=== PATIENT | male | born 1940 | race Caucasian/White ===

== ENCOUNTER 2017-03-26 11:56 | Observation (INO) ==
[2017-03-26] MEDS ORDERED: ASPIRIN PO STA (12:12)
[2017-03-26 12:28] LABS: MANUAL DIFF NEEDED? NO
--- NOTE | 2017-03-26 12:29 | ED EKG INTERP ---
This chart was entered by Deon Sánchez Scribe, acting as scribe for Bradly Romero MD. EKG Interpretation - EKG Time of EKG reading by physician:: 12:06 EKG Read and Signed by:: Bradly Romero EKG Interpretation (*Must complete 3 of following elements*): Normal Rate: 57 Rhythm: Sinus bradycardia [place]: normal QRS: normal [place] Interval: normal ST Wave: normal This chart was documented by the indicated scribe, (Deon Sánchez Scribe) and accurately reflects the services I performed and decisions made by me, Bradly Romero MD, as attested by the provider's signature.
[2017-03-26 12:36] LABS: BASO% 0.2 % (0.0-0.8); EOS# 0.14 X1000 (0.0-0.7); EOS% 2.3 % (0.0-10.0); HEMATOCRIT 44.5 % (42.0-52.0); HEMOGLOBIN 15.7 g/dL (14.0-18.0); LYMPH# 1.43 X1000 (1.2-3.4); LYMPH% 23.8 % (20.5-51.1); MCH 32.2 PG (27-31); MCHC 35.3 g/dL (33-37); MCV 91.2 FL (81-99); MONO# 0.55 X1000 (0.11-0.59); MONO% 9.1 % (1.7-9.3); NEUT% 64.6 % (42.2-75.2); PLT 194 X1000 (130-400); RBC 4.88 XMIL (4.7-6.1)
[2017-03-26 12:40] LABS: INR 0.96; PTT 27.3 Seconds (22.0-36.0)
[2017-03-26 12:53] LABS: ALBUMIN 4.3 g/dL (3.5-5.0); MAGNESIUM 2.1 mg/dL (1.5-2.7); POTASSIUM 4.4 mmol/L (3.5-5.1); TOTAL BILIRUBIN 0.68 mg/dL (0.20-1.00); TOTAL PROTEIN 6.8 g/dL (6.3-8.3)
--- NOTE | 2017-03-26 13:00 | Diag Imaging Result Doc PS360 ---
EXAM: CHEST-2 VIEWS INDICATION: CP TECHNIQUE: 2 views COMPARISON: None. FINDINGS: There is a calcified granuloma in the right mid to lower lung zone and a few calcified right hilar lymph nodes indicating prior granulomatous disease. The lungs are grossly clear. There is no discrete pleural fluid collection or pneumothorax. The cardiomediastinal silhouette and central vasculature are grossly unremarkable. IMPRESSION: No evidence of acute pathology by plain radiograph. Electronically signed by Nash He 03/26/2017 12:57 PM
[2017-03-26] MEDS ORDERED: PEPCID IV ONE (14:13)
[2017-03-26] MEDS ORDERED: SODIUM CHLORIDE 0.9% INJ ONE (14:13)
[2017-03-26] MEDS ORDERED: G.I. COCKTAIL PO ONE (14:15)
[2017-03-26] MEDS ORDERED: ZOFRAN IV ONE (16:05)
[2017-03-26] MEDS ORDERED: MORPHINE IV ONE (16:05)
--- NOTE | 2017-03-26 16:14 | PROVIDER DOCUMENTATION ---
This chart was entered by Deon Sánchez Scribe, acting as scribe for Laura Sanchez CRNP. HPI-Chest Pain - General Chief Complaint: Chest Pain Stated Complaint: CHEST TIGHTNESS Time Seen by Provider: 03/26/17 13:35 Source: patient Allergies/Adverse Reactions: Patient Allergies Allergy/AdvReac Type Severity Reaction Status Date / Time adhesive tape Allergy RASH Verified 03/26/17 13:15 Home Medications: Home Medication List Medication Instructions Recorded Confirmed Last Taken Type Aspirin 81 mg PO DAILY 03/26/17 03/26/17 03/26/17 07:00 History Dapagliflozin Propanediol [Farxiga] 10 mg PO DAILY 03/26/17 03/26/17 03/26/17 07 :00 History Lisinopril [Lisinopril] 2.5 mg PO DAILY 03/26/17 03/26/17 03/26/17 07:00 History - History of Present Illness-CP Nature of Presenting Problem: Patient is a 76 y/o M that presents to the ER with left sided chest pain that radiates to the left arm. Denies shortness of breath, vomiting, and diaphoresis. Reports nausea at one point, but has gone away. Patient's pain has been waxing and waning for 2 weeks. Seen per today, sent him here for evaluation. Has cardiology F/U appt pending on April 09. Location: reports: substernal Chest Pain Radiation: reports: arms (left) Quality of Pain: reports: pressure, sharp Severity in ED: moderate Onset/Duration: gradual, other (2 weeks) Timing: still present, intermittent, constant Context/Activities at Onset: reports: none Modifying Factors: improves with: nothing Associated Symptoms: reports: nausea. denies: back pain, diaphoresis, dizziness , fever/chills, shortness of breath, swelling/lump in chest Nitro Today/Relief: no nitro taken today Aspirin Treatment Today: 325 mg x 1, provided by ED Prior Chest Pain/Cardiac Workup: reports: no prior cardiac workup Similar Symptoms Previously?: No Recently Seen Here or By Another Healthcare Provider: No Review of Systems - Adult - REVIEW OF SYSTEMS - ADULT Constitutional: denies: chills, fever Eyes: reports: no symptoms reported Ears, Nose, Mouth & Throat: reports: no symptoms reported Cardiovascular: reports: chest pain. denies: palpitations, syncope Respiratory: denies: cough, shortness of breath, wheezing Gastrointestinal: reports: nausea. denies: abdominal pain, diarrhea, vomiting Genitourinary: reports: no symptoms reported Musculoskeletal: reports: no symptoms reported Integumentary: reports: no symptoms reported Neurological: reports: no symptoms reported Psychiatric: reports: no symptoms reported Endocrine: reports: no symptoms reported Hematologic/Lymphatic: reports: no symptoms reported Allergic/Immunologic: reports: no symptoms reported All Other Systems: Reviewed and Negative Past History - Adult - PAST MEDICAL HISTORY-ADULT Review of Records: reports: Old Records Reviewed, Nursing Assessment Review, Medications Reviewed Cardiovascular: reports: HTN Genitourinary: reports: prostate cancer Endocrine/Immune: reports: Diabetes Diabetes controlled by:: PO Meds - PRIOR SURGERIES/PROCEDURES Surgical/Procedure History: reports: appendectomy, tonsillectomy, hernia repair , orthopedic (extremity) - PRIOR HOSPITALIZATIONS Prior Hospitalizations: reports: for other non-related - IMMUNIZATION STATUS Childhood Immunizations: See Nurse Assessment Flu Vaccine: See Nurse Assessment - FAMILY HISTORY Family History: reviewed, not pertinent - SOCIAL HISTORY Smoking: non-smoker Living Situation: family Physical Exam-General - PHYSICAL EXAM-ADULT Initial Vital Signs Reviewed: Yes - CONSTITUTIONAL General Appearance: alert, no apparent distress - EYES Eyes: PERRL/EOMI, pink conjunctivae - HEAD, EARS, NOSE, MOUTH & THROAT HENMT: normocephalic/atraumatic, moist mucous membranes, normal ENT inspection - NECK Neck: full range of motion, normal inspection - RESPIRATORY Respiratory: chest non-tender, lungs clear, normal breath sounds, no respiratory distress, no accessory muscle use - CARDIOVASCULAR Cardiovascular: regular rate, rhythm, no edema, no murmur - GASTROINTESTINAL (ABDOMEN) Abdominal Exam: normal bowel sounds, non tender, soft - MUSCULOSKELETAL Extremity: normal range of motion, normal inspection, no pedal edema - SKIN Integumentary: normal color, warm/dry - NEUROLOGIC Neurologic: photofinishing laboratory worker II-XII nml as tested, no motor/sensory deficits - PSYCHIATRIC Psych/Mental Status: normal mood/affect, normal thought content, normal thought process, oriented x 3 Progress - PLAN OF CARE/RESULTS Progress/Plan/Lab Results: Vital Signs - 8 hr 03/26/17 12:09 03/26/17 13:00 03/26/17 14:14 Temperature 97.5 F L Pulse Rate 61 61 66 Respiratory Rate 18 18 17 Blood Pressure 131/74 144/82 144/82 O2 Sat by Pulse Oximetry 98 98 03/26/17 15:00 03/26/17 15:39 03/26/17 16:02 Temperature 97.7 F Pulse Rate 63 69 62 Respiratory Rate 19 16 17 Blood Pressure 153/93 153/93 143/84 O2 Sat by Pulse Oximetry 97 97 97 Laboratory Results - last 24 hr 03/26/17 03/26/17 03/26/17 12:13 12:13 12:13 WBC 6.02 RBC 4.88 Hgb 15.7 Hct 44.5 MCV 91.2 MCH 32.2 H MCHC 35.3 RDW Std Deviation 12.1 Plt Count 194 MPV 11.0 H Immature Gran % (Auto) 0.0 Neut % (Auto) 64.6 Lymph % (Auto) 23.8 [place] % (Auto) 9.1 Eos % (Auto) 2.3 Baso % (Auto) 0.2 Immature Gran # (Auto) 0.00 Neut # (Auto) 3.89 Lymph # (Auto) 1.43 [place] # (Auto) 0.55 Eos # (Auto) 0.14 Baso # (Auto) 0.01 PT INR PTT (Actin FS) D-Dimer < 0.10 Sodium 138 Potassium 4.4 Chloride 103 Carbon Dioxide 23 L Anion Gap 12 BUN 29 H Creatinine 1.3 H Estimated GFR/1.73 m2 54 BUN/Creatinine Ratio 22 Glucose 120 H Calculated Osmolality 283 Calcium 9.0 Magnesium 2.1 Total Bilirubin 0.68 AST 14 ALT 18 Alkaline Phosphatase 68 Creatine Kinase 43 Troponin T Bwl-W-Essvnjpphvk Pept Total Protein 6.8 Albumin 4.3 Globulin 2.5 Albumin/Globulin Ratio 1.7 03/26/17 03/26/17 03/26/17 12:13 12:13 12:13 WBC RBC Hgb Hct MCV MCH MCHC RDW Std Deviation Plt Count MPV Immature Gran % (Auto) Neut % (Auto) Lymph % (Auto) [place] % (Auto) Eos % (Auto) Baso % (Auto) Immature Gran # (Auto) Neut # (Auto) Lymph # (Auto) [place] # (Auto) Eos # (Auto) Baso # (Auto) PT 10.0 INR 0.96 PTT (Actin FS) 27.3 D-Dimer Sodium Potassium Chloride Carbon Dioxide Anion Gap BUN Creatinine Estimated GFR/1.73 m2 BUN/Creatinine Ratio Glucose Calculated Osmolality Calcium Magnesium Total Bilirubin AST ALT Alkaline Phosphatase Creatine Kinase Troponin T < 0.010 Mcw-D-Jymsdeplybs Pept 78 Total Protein Albumin Globulin Albumin/Globulin Ratio Orders Category Date Time Status CHEST-2 VIEWS [RAD] Stat Exams 03/26/17 12:12 Completed CBC WITH ELECTRONIC DIFF [HEME] Stat Lab 03/26/17 12:13 Completed CK PROFILE [SP CHEM] Stat Lab 03/26/17 12:13 Completed COMPREHENSIVE METABOLIC PANEL [CHEM] Stat Lab 03/26/17 12:13 Completed D-DIMER [CHEM] Stat Lab 03/26/17 12:13 Completed MAGNESIUM [CHEM] Stat Lab 03/26/17 12:13 Completed PRO B-NATRIURETIC PEPTIDE Stat Lab 03/26/17 12:13 Completed PROTIME WITH INR [COAG] Stat Lab 03/26/17 12:13 Completed PTT [COAG] Stat Lab 03/26/17 12:13 Completed TROPONIN T Stat Lab 03/26/17 12:13 Completed Aspirin Med 03/26/17 12:12 Discontinued 325 mg PO STAT STA Famotidine [Pepcid] Med 03/26/17 14:13 Discontinued 20 mg IV NOW ONE Lido/Broussard Alk/Al&mg Hydrox [G.i. Cocktail] Med 03/26/17 14:15 Discontinued 30 ml PO NOW ONE Morphine Med 03/26/17 16:05 Discontinued 4 mg IV NOW ONE Ondansetron [Zofran] Med 03/26/17 16:05 Discontinued 4 mg IV NOW ONE Sodium Chloride 0.9% Med 03/26/17 14:13 Discontinued 5 - 10 ml INJ NOW ONE EKG [EKG] Stat Ther 03/26/17 12:12 Ordered Result Diagrams: 03/26/17 12:13 03/26/17 12:13 - REASSESSMENT Reassessment #1 Time Reassessed: 15:37 (Discussed results with pt and pts daughter. Pt prefers admit, does not feel comfortable with DC home. Plan for admit for cardiac rule out.) Reassessment #2 Time Reassessed: 16:11 (Spoke with Dr. Mai; he recommends admit, Chest pain rule out, and states he will enter the admit orders.) Status: other (Pt reported continued left arm pain; ordered Morphine.) Departure - Departure Date of Disposition Decision: 03/26/17 Time of Disposition Decision: 15:38 DIAGNOSIS: Chest pain Disposition: ADMITTED INPATIENT 09 Certified Medical Emergency: Emergent Condition: Stable Additional Freetext Instructions: to Dr. Mai, Hospitalist Referrals and Follow-Ups: Armando Guzman [Primary Care Provider] - - Critical Care Note This patient required my direct & personal management of CC.: No Comments: Patient care supervised by Dr. Romero, he was present in the ED throughout patient's care and was aware/agreeable with admit for cardiac rule out. Attestation - Physician/ GLENN Attestation Patient care was provided by Advanced Practice Provider:: Yes Advanced Practice Provider:: Laura Sanchez Advanced Practice Provider documentation review:: The Mid-level provider documentation, treatment plan and medical decision making was reviewed by the physician who agrees with all treatment and medical decision making by the MLP. This chart was documented by the indicated scribe, (Deon Sánchez, Tommy) and accurately reflects the services I performed and decisions made by , Laura Sanchez CRNP, as attested by the provider's signature.
[2017-03-26] MEDS ORDERED: NS 1,000 ML IV SCH (18:37)
[2017-03-26] MEDS ORDERED: TYLENOL PO PRN (18:37)
[2017-03-26] MEDS ORDERED: ZOFRAN IV PRN (18:37)
--- NOTE | 2017-03-26 18:46 | HISTORY AND PHYSICAL ---
CHIEF COMPLAINT: Chest pain, dyspnea on exertion, left shoulder pain. HISTORY OF PRESENT ILLNESS: This is a 76-year-old male with history of hypertension, diabetes, presenting with a several week history of chest discomfort. The patient saw his PCP, who is Dr. Armando Guzman, and was given Pepcid and he was set up for cardiac workup at this time, but he had persistence in is chest pain over the last 1-2 days and was told to come here for cardiac evaluation. He does report some reflux, GI symptoms. He had improvement with Pepcid. He has pain waking from sleep. He has episodes of regurgitation where food comes back up when he bears down. He has decreased appetite and has lost 1 pant size over the last year. He does not have odynophagia per se or dysphagia. He has been feeling increasing fatigued. 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 But he noticed he has been able to handle exercise and now, he had he has to rest periodically because he just gets too tired. Denies orthopnea and no PND. No nausea, vomiting, diarrhea. No syncope. No palpitations. Workup in the ER with concern over chest pain, he was placed in observation. PAST MEDICAL HISTORY: 1. Hepatitis A. 2. Type 2 diabetes. 3. Prostate cancer with brachytherapy. 4. History of diverticulitis. 5. Left carpal tunnel syndrome. He has also recently injured his hand with a saw and actually had the fingernail cut out there. PAST SURGICAL HISTORY: 1. He had the brachytherapy. 2. Right knee arthroscopically. 3. Left shoulder rotator cuff repair. 4. Appendectomy. 5. Bilateral hernia repair. 6. Tonsillectomy. 7. Nasal septal repair. MEDICATIONS: He currently takes metformin, dapagliflozin, aspirin 81 daily, lisinopril 2.5 daily. SOCIAL HISTORY: No tobacco or ethanol. FAMILY HISTORY: Father had ME at 82. REVIEW OF SYSTEMS: Reviewed 10-point review of systems. PHYSICAL EXAMINATION: VITAL SIGNS: Blood pressure 157/94, heart rate 71, respiratory rate 20, temperature 97.7 degrees, 96% on room air. CARDIOVASCULAR: Regular rate and rhythm. PULMONARY: Bilateral breath sounds. Clear to auscultation. GI: Soft, nontender, nondistended. Bowel sounds are positive. EXTREMITIES: No clubbing or cyanosis. LYMPHATICS: No peripheral edema. NEUROLOGICAL: Nonfocal. LABORATORY DATA: Normal CBC, basic, his BUN of 29 and creatinine of 1.3 and a CPK was negative. D-dimer was negative. EKG was nonspecific. Chest x-ray, I believe, was read as clear. I felt he did have some rales on the left base. ASSESSMENT: 1. This is a 76-year-old male with history of chest pain who comes in for chest pain with concern over possible unstable angina and he was admitted as such. He will be put on telemetry, have serial cardiac enzymes obtained and we will follow him closely. We will pursue stress test in the morning. Family requests Cardiology consultation. We will check lipids. 2. Diabetes. Appears well controlled. He is on oral medication. We will check an A1c. Follow blood sugars and continue sliding scale insulin. 3. Hypertension. Appears to be stable. 4. Reflux. We will continue proton pump inhibitor and monitor closely. cc: MD Armando Harden MD
--- NOTE | 2017-03-26 18:51 | Diag Imaging Result Doc PS360 ---
SHOULDER-LEFT - 03/26/2017 INDICATION: shoulder pain TECHNIQUE: Three views COMPARISON: None FINDINGS: There is severe hypertrophic degeneration of the acromioclavicular joint with irregularity and some spurring. There is also tissue degenerative irregularity at the glenoid fossa particularly posteriorly and inferiorly. The glenohumeral joint is otherwise preserved. No acute fracture or dislocation. IMPRESSION: Significant chronic changes. Electronically signed by James Agudelo 03/26/2017 6:48 PM
[2017-03-26] MEDS: HUMULIN R SUBQ SCH (21:52)
--- NOTE | 2017-03-27 05:41 | EKG Report ---
Test Performed on : 03/26/2017 12:06:18 PM Test Reason : CP/Re-Ordered Blood Pressure : / mmHG Vent. Rate : 057 BPM Atrial Rate : 057 BPM P-R Int : 226 ms QRS Dur : 066 ms QT Int : 404 ms P-R-T Axes : 014 011 029 degrees QTc Int : 393 ms Sinus bradycardia. with 1st degree AV block. Otherwise normal ECG No previous ECGs available Unconfirmed Result
[2017-03-27] MEDS: HUMULIN R SUBQ SCH ×3 (06:25→17:11)
[2017-03-27 06:40] LABS: HEMATOCRIT 44.2 % (42.0-52.0); HEMOGLOBIN 15.5 g/dL (14.0-18.0); MCH 32.1 PG (27-31); MCHC 35.1 g/dL (33-37); MCV 91.5 FL (81-99); RBC 4.83 XMIL (4.7-6.1)
[2017-03-27] MEDS ORDERED: PRILOSEC PO SCH (07:00)
[2017-03-27 07:13] LABS: AGAP 11; BUN 22 mg/dL (8-22); CALCIUM 9.1 mg/dL (8.8-10.2); CHLORIDE 104 mmol/L (98-107); COSMO 282; POTASSIUM 4.1 mmol/L (3.5-5.1); SODIUM 139 mmol/L (136-145); TCO2 24 mmol/L (25-35)
[2017-03-27] MEDS: ASPIRIN PO SCH ×2 (07:43→10:39)
[2017-03-27] MEDS ORDERED: LEXISCAN ONE (08:30)
--- NOTE | 2017-03-27 14:26 | Diag Imaging Result Document ---
PROCEDURE NAME: MYOCARDIAL PERF SCAN, STR/REST - 03/27/2017 LEXISCAN SESTAMIBI INTERPRETATION: SUMMARY: The patient was administered 11.5 millicuries of technetium-99m sestamibi, after which resting cardiac images were obtained. The patient was subsequently stressed using a Lexiscan protocol. Following the administration of Lexiscan, the heart increased from 57 beats per minute to 95 beats per minute, while the blood pressure went from 143/82 to 130/76. With Lexiscan, the patient denied chest discomfort. Following the administration of Lexiscan, the patient was administered 33.7 millicuries of technetium-99m sestamibi, after which gated stress cardiac images were obtained. Baseline ECG demonstrated sinus bradycardia. With Lexiscan, there were no diagnostic ST-segment changes. SPECT images were reconstructed in the short, horizontal, and vertical long axis. Review of these images demonstrated mildly diminished activity in the basal to mid inferior wall on stress images, which appears similar on resting images. No significant reversibility is evident. Gated images demonstrate a calculated left ventricular ejection fraction of 68% with symmetrical wall motion/thickening. CONCLUSIONS: 1. Adequate response to Lexiscan. 2. Clinically negative for chest pain. 3. Electrocardiographically negative for Lexiscan-induced myocardial ischemia. 4. Lexiscan sestamibi images demonstrate fixed mildly diminished activity in the basal to mid inferior wall with corresponding preserved regional wall motion probably due to soft tissue attenuation artifact. There is no convincing scintigraphic evidence of inducible myocardial ischemia. Normal left ventricular systolic function demonstrated. cc: MD Last Castro MD
--- NOTE | 2017-03-27 15:22 | EKG Report ---
Test Performed on : 03/27/2017 1:31:16 PM Test Reason : chest pain Blood Pressure : / mmHG Vent. Rate : 075 BPM Atrial Rate : 075 BPM P-R Int : 218 ms QRS Dur : 076 ms QT Int : 370 ms P-R-T Axes : 033 016 033 degrees QTc Int : 413 ms Sinus rhythm. with marked sinus arrhythmia. with 1st degree AV block. Nonspecific ST abnormality Abnormal ECG When compared with ECG of 26-MAR-2017 12:06, No significant change was found Confirmed by Dante Lopez MD ([id number]) on 03/28/2017 1:01:43 PM
[2017-03-27 16:35] VITALS: BP 137/84
--- NOTE | 2017-03-28 09:10 | CONSULTATION ---
DATE OF CONSULTATION: 03/27/2017 REQUESTING PHYSICIAN: Hospitalist Service. REASON FOR CONSULTATION: Chest discomfort and shoulder pain. PRIMARY PHYSICIAN: Armando Guzman MD HISTORY OF PRESENT ILLNESS: Mr. Voss is a 76-year-old male who presented first to the attention of Dr. Armando Guzman about 2 weeks ago with increasing fatigue, the sensation of discomfort in the center of the chest radiating to the throat with a hot feeling there, and then he started to develop discomfort in the left arm. This discomfort is not exercise related. It happens at night and wakes him up and he has to sit up at the side of the bed until it subsides. What worried him more than anything else was the sensation of the progressive inability to do his usual physical activities as he is used to working very intensely. Any at rate, the patient came into the Emergency Room and they did an EKG that showed a sinus rhythm with minor nonspecific ST or T change. They did troponin levels and they were negative. They recommended staying in the hospital for further testing. Dr. Guzman put him on some acid reducing medicine and he feels like for the past 3 days he has not has as much of that discomfort. However, he has grown increasingly concerned about the fatigue. PAST MEDICAL HISTORY: His past history is positive for hypertension, diabetes mellitus type 2, diverticulitis, carpal tunnel syndrome, and remote history of hepatitis A. He has also had prostate cancer. PAST SURGICAL HISTORY: He had a right knee arthroscopy, left shoulder rotator cuff repair, appendectomy, bilateral hernia repair, tonsillectomy, nasal septal repair, and brachytherapy. SOCIAL HISTORY: He is and retired. He lives at home. He is not a smoker and not a drinker. FAMILY HISTORY: His father had an [place] at the age of 82. MEDICATION: His home medications include lisinopril 2.5 mg daily, Farxiga 10 mg daily, and aspirin 81 mg daily. REVIEW OF SYSTEMS: His review of systems beyond what I have reported is noncontributory. Multiple systems were interrogated. PHYSICAL EXAMINATION: VITAL SIGNS: Blood pressure is 136/84, pulse 66, temperature 97.6, and respirations 18. GENERAL: He is awake, alert, oriented, and in no distress. HEENT: Unremarkable. CHEST: Clear to auscultation and percussion. CARDIOVASCULAR: Heart sounds are regular and rhythmic. No gallop or murmur. ABDOMEN: His abdomen is nontender and soft. No masses. No hepatomegaly. EXTREMITIES: The extremities show no peripheral edema. NEUROLOGICAL: He follows commands and moves all extremities. LABORATORY DATA: BUN and creatinine are normal. His blood work also showed a total cholesterol of 180, LDL 130, HDL 33, and triglycerides 200. IMPRESSION: 1. Patient presented with atypical chest discomfort with increasing fatigue suspicious for coronary artery disease. 2. History of diabetes mellitus type 2. 3. History of hypertension. 4. History of prostate cancer treated with brachytherapy for more than 10 years, stable. RECOMMENDATIONS: We will review the results of the myocardial perfusion stress test and we are going to also request an echocardiogram on him. Further advise will be forthcoming. Thank you for the opportunity to participate in his evaluation. cc: Fitz Cadet MD
--- NOTE | 2017-03-28 15:32 | ECHO REPORT ---
ORDER DATE: 03/27/2017 ECHOCARDIOGRAM: MEASUREMENTS: Left ventricular end-diastolic diameter 4.3, end systolic diameter 2.5, septal thickness 0.9, posterior wall thickness 0.8, left atrium 3.3, aortic root 3.2. SUMMARY: 1. Fair quality study. 2. Trileaflet aortic valve is sclerotic with mildly reduced aortic valve mobility. Peak gradient across the aortic valve is 25-30 mmHg with a mean gradient of 13 mmHg. Calculated aortic valve area is at least 1.5 cm2. Mild aortic stenosis is suggested. Mitral, tricuspid and pulmonic valves are without structural abnormality with trace mitral regurgitation, trace tricuspid regurgitation, and trace pulmonic insufficiency. The estimated systolic PA pressure by Doppler is 30-35 mmHg. The aortic root is normal in size. 3. Normal left ventricular dimensions suggested. Estimated left ventricular ejection fraction appears to be at least 65%. No regional wall motion abnormalities are evident. Doppler suggests grade 1 left ventricular diastolic dysfunction. Left atrium, right atrium, and right ventricle are normal size with normal right ventricular systolic function. 4. No pericardial effusion. 5. Appearance of inferior vena cava suggests normal central venous pressure. CONCLUSIONS: 1. Mild aortic stenosis. 2. Estimated left ventricular ejection fraction at least 65%. 3. Grade 1 left ventricular diastolic dysfunction. cc: MD Earline Castro PA
--- NOTE | 2017-04-19 22:32 | DISCHARGE SUMMARY ---
ADMISSION DATE: 03/26/2017 DISCHARGE DATE: 03/27/2017 DISCHARGE DIAGNOSIS: I think was probably chest pain with concern over acute coronary syndrome. HISTORY OF PRESENT ILLNESS: Briefly a 76-year-old gentleman on the 5th who presented with chest pain. He had a history of hepatitis A, type 2 diabetes, he was admitted, had serial cardiac enzymes which were negative for acute coronary event, non ST elevation [place]. Cardiology was consulted. He had an echocardiogram and perfusion test done, Lexiscan showed fixed defect, no wall motion abnormality but no inducible ischemia. EF was intact 68%. Echocardiogram was unremarkable. Mild aortic stenosis, grade 1 left ventricular diastolic dysfunction. Clinically he stabilized and he was I think discharged later in the afternoon. DISCHARGE MEDICATIONS: Aspirin 81, dapagliflozin 10, lisinopril Prilosec 40 daily, Zocor 40 daily. Told to follow up with his PCP for further evaluation that is Dr. Armando Guzman, possibly a GI workup. cc: Last Mai MD
== END 2017-03-27 18:12 | disposition home or self-care (01) ==
LOC: 4N 11:56 → ED 11:56 → 4N 03-27 02:03
PROVIDERS: ATTEND Internal Medicine